=== PATIENT | male | born 1965 | race Caucasian/White ===

== ENCOUNTER 2017-01-11 07:12 | Emergency (ER) | payer OTHER ==
--- NOTE | 2017-01-11 07:25 | EDM.PDOC ---
ED HPI GENERAL MEDICAL PROBLEM - General Chief Complaint: Flank Pain Stated Complaint: FLANK PAIN Time Seen by Provider: 01/11/17 07:24 - History of Present Illness INITIAL COMMENTS - FREE TEXT/NARRATIVE: 51-year-old male presents emergency room with left-sided flank pain. This pain started early this morning 3 hours ago under his left-sided ribs he felt the pain moved down and then he had relieve pain and then the pain came back in his midabdomen. This pain reminds him of his kidney stones. Patient has had kidney stones on an on-and-off basis for the last 18-20 years. His last kidney stone was about 6 years ago. Patient denies fevers or chills no nausea or vomiting or change in bowel habits. No burning or frequency with urination. Currently patient is been treated for neck pain with gabapentin and meloxicam. The patient is appear working he does not have a local physician Treatments [employer]TER: Reports: Other Medication(s) Left Flank Pain Score (Numeric/FACES): 6 - Related Data Allergies Allergy/AdvReac Type Severity Reaction Status Date / Time No Known Allergies Allergy Verified 01/11/17 07:16 Home Meds: Home Meds Gabapentin [Neurontin] 300 mg PO DAILY 01/11/17 [History] Hydrocodone/Acetaminophen [[place] 5-325 Tablet] 1 - 2 each PO Q4H PRN #20 tablet 01/11/17 [Rx] Meloxicam 15 mg PO DAILY 01/11/17 [History] Ondansetron [Zofran ODT] 4 mg PO Q4H PRN #10 tab.dis 01/11/17 [Rx] Tamsulosin HCl [Flomax] 0.4 mg PO Q24H #7 cap.er.24h 01/11/17 [Rx] ED ROS GENERAL - Review of Systems Review Of Systems: See Below Constitutional: Reports: No Symptoms HEENT: Reports: No Symptoms Respiratory: Reports: No Symptoms Cardiovascular: Reports: No Symptoms GI/Abdominal: Reports: Abdominal Pain. Denies: Constipation, Diarrhea, Nausea, Vomiting : Reports: Flank Pain. Denies: Discharge, Dysuria, Frequency, Hematuria, Urgency ED EXAM, GENERAL - Physical Exam Exam: See Below Exam Limited By: No Limitations General Appearance: Alert, No Apparent Distress Respiratory/Chest: No Respiratory Distress, Lungs Clear, Normal Breath Sounds Cardiovascular: Regular Rate, Rhythm, No Edema, No Murmur GI/Abdominal: Normal Bowel Sounds, Soft, Other (He has some vague left-sided abdominal discomfort was not worsened with palpation no rigidity rebound or guarding) Back Exam: Normal Inspection. No: CVA Tenderness (L), CVA Tenderness (R) Extremities: Normal Inspection, No Pedal Edema Neurological: Alert, Oriented, Normal Cognition Course - Vital Signs Last Recorded V/S: Last Vital Signs Temp 35.9 C 01/11/17 07:21 Pulse 70 01/11/17 07:21 Resp 18 01/11/17 07:21 BP 156/96 H 01/11/17 07:21 Pulse Ox 98 01/11/17 07:21 - Orders/Labs/Meds Orders: Active Orders 24 hr Category Date Time Status Lactated Ringers [Ringers, Lactated] 1,000 ml Med 01/11/17 07:45 Active IV ASDIRECTED Medication Orders Lactated Ringer's (Ringers, Lactated) 1,000 mls @ 150 mls/hr IV ASDIRECTED TURNER Last Admin: 01/11/17 07:45 Dose: 150 mls/hr Labs: Laboratory Tests 01/11/17 01/11/17 01/11/17 Range/Units 07:22 07:30 07:30 WBC 8.03 (4.23-9.07) K/mm3 RBC 6.01 (4.63-6.08) M/mm3 Hgb 17.5 (13.7-17.5) gm/L Hct 50.3 (40.1-51.0) % MCV 83.7 (79.0-92.2) fl MCH 29.1 (25.7-32.2) pg MCHC 34.8 (32.2-35.5) g/dl RDW Std Deviation 40.5 (35.1-43.9) fL Plt Count 204 (163-337) K/mm3 MPV 10.2 (9.4-12.3) fl Neutrophils % (Manual) 67 H (40-60) % Band Neutrophils % 0 (0-10) % Lymphocytes % (Manual) 20 (20-40) % Atypical Lymphs % 0 % Monocytes % (Manual) 4 (2-10) % Eosinophils % (Manual) 8 H (0.8-7.0) % Basophils % (Manual) 1 (0.2-1.2) Platelet Estimate Adequate RBC Morph Comment Normal Sodium 142 (136-145) mEq/L Potassium 4.1 (3.5-5.1) mEq/L Chloride 105 (98-107) mEq/L Carbon Dioxide 29 (21-32) mEq/L Anion Gap 12.1 (5-15) BUN 19 H (7-18) mg/dL Creatinine 0.9 (0.7-1.3) mg/dL Est Cr Clr Drug Dosing 112.21 mL/min Estimated GFR (MDRD) > 60 (>60) mL/min BUN/Creatinine Ratio 21.1 H (14-18) Glucose 125 H (74-106) mg/dL Calcium 9.0 (8.5-10.1) mg/dL Total Bilirubin 0.5 (0.2-1.0) mg/dL AST 28 (15-37) U/L ALT 58 (16-63) U/L Alkaline Phosphatase 78 (46-116) U/L Total Protein 7.8 (6.4-8.2) g/dl Albumin 4.2 (3.4-5.0) g/dl Globulin 3.6 gm/dL Albumin/Globulin Ratio 1.2 (1-2) Urine Color Yellow (Yellow) Urine Appearance Clear (Clear) Urine pH 6.0 (5.0-8.0) Ur Specific [place] 1.025 (1.005-1.030) Urine Protein 2+ H (Negative) Urine Glucose (UA) Negative (Negative) Urine Ketones Negative (Negative) Urine Occult Blood 3+ H (Negative) Urine Nitrite Negative (Negative) Urine Bilirubin Negative (Negative) Urine Urobilinogen 0.2 (0.2-1.0) Ur Leukocyte Esterase Negative (Negative) Urine RBC Too numerous to cnt H (0-5) /hpf Urine WBC Not seen (0-5) /hpf Ur Epithelial Cells Not seen (0-5) /hpf Urine Bacteria Few (FEW) /hpf Urine Mucus Few (FEW) /hpf Meds: Medications Generic Name Dose Route Start Last Admin Trade Name Freq PRN Reason Stop Dose Admin Lactated Ringer's 1,000 mls @ 150 mls/hr 01/11/17 07:45 01/11/17 07:45 Ringers, Lactated IV 150 mls/hr ASDIRECTED TURNER Administration Discontinued Medications Generic Name Dose Route Start Last Admin Trade Name Freq PRN Reason Stop Dose Admin Fentanyl 50 mcg 01/11/17 07:35 01/11/17 07:43 Sublimaze IVPUSH 01/11/17 07:36 50 mcg ONETIME ONE Administration - Re-Assessments/Exams Free Text/Narrative Re-Assessment/Exam: 01/11/17 09:36 CT is consistent with a left-sided kidney stone just proximal to the UVJ patient has a 3.2 mm stone. With some mild dilation of the ureter. We are awaiting the results of the urinalysis. The patient works here he lives in [place] and he will be going home on Saturday he should follow-up in our clinic on Saturday for recheck. Patient understands this and is in agreement to it. 01/11/17 11:01 Urinalysis has some microscopic hematuria. No evidence of infection. The patient will be discharged this time. Departure - Departure Time of Disposition: 11:02 Disposition: Home, Self-Care 01 Clinical Impression: Kidney stone on left side - Discharge Information Prescriptions: Hydrocodone/Acetaminophen [[place] 5-325 Tablet] 1 - 2 each PO Q4H PRN #20 tablet PRN Reason: Abdominal Pain Ondansetron [Zofran ODT] 4 mg PO Q4H PRN #10 tab.dis PRN Reason: Nausea/Vomiting Tamsulosin HCl [Flomax] 0.4 mg PO Q24H #7 cap.er.24h Referrals: PCP,Not In Area [Primary Care Provider] - Forms: ED Department Discharge Additional Instructions: Return to the emergency room with any questions problems or worsening symptoms. Follow-up in the Hospital clinic for recheck on Saturday. [phone]. Call your physician back home and see him the end of this week for recheck as well. You have a left-sided kidney stone I anticipate this will pass. You will be started on Flomax this helps year urinary tract relax to facilitate easier passage of stones. Strain urine to try and catch the stone and discussed with your physician having this analyzed and see if they can get you on treatment to minimize your stones you have several stones within your kidneys that can pass down the road. And it would be better to minimize the formation of these. You been started on 3 new medications the first one is Flomax take one daily for a week. You been started on hydrocodone take one or 2 every 4 hours as needed for pain. Allow 12 hours after using this medication before driving or returning to work. You been started on Zofran this is for nausea it will dissolve on or under your tongue use 1 every 4-6 hours as needed. When you get home meet with your physician discuss your kidney stone and how to prevent getting more of them.. Your CAT scan showed a fatty liver. Discussed this with your physician. And have your physician review your overall health. - My Orders Last 24 Hours: My Active Orders 01/11/17 07:45 Lactated Ringers [Ringers, Lactated] 1,000 ml IV ASDIRECTED - Assessment/Plan Last 24 Hours: My Active Orders 01/11/17 07:45 Lactated Ringers [Ringers, Lactated] 1,000 ml IV ASDIRECTED
[2017-01-11] MEDS ORDERED: fentaNYL 100 MCG/2 ML SDV IVPUSH ONE (07:35)
[2017-01-11] MEDS ORDERED: Lactated Ringers 1,000 ML IV SCH (07:45)
--- NOTE | 2017-01-11 08:42 | CT ---
CT abdomen and pelvis Technique: Multiple axial sections were obtained from above the dome of the diaphragm inferiorly to the pubic symphysis. Intravenous and oral contrast was not utilized. Study has been performed as a ureteral stone protocol. Findings: Multiple nonobstructing calculi are seen within both kidneys measuring less than 5 mm. Left ureter is mildly prominent. This ureteral prominence is due to an obstructing stone within the distal left ureter measuring approximately 3.2 mm. This stone is located approximately 2.5 cm from the UVJ. No other abnormal calcifications are seen along the course of the ureters. Calcified lymph nodes are seen within the left hilum and inferior hilar region. Nothing acute is seen within the visualized lung bases. Diffuse fatty infiltration is seen within the liver. Several small calcified gallstones are seen within the gallbladder. Spleen shows a calcified granuloma. Pancreas is within normal limits. Aorta shows slight atherosclerotic calcification without aneurysm. No retroperitoneal adenopathy or mesenteric abnormalities are seen. No pelvic mass or adenopathy is seen. No findings of appendicitis are seen. No bowel dilatation is seen. Bone window settings were reviewed which shows slight degenerative change within the spine. Impression: 1. Multiple small nonobstructing calculi within both kidneys. 2. Mild left ureteral prominence caused by an obstructing 3.2 mm stone within the distal left ureter located approximately 2.5 cm from the UVJ. 3. Fatty infiltration within the liver. Several small calcified gallstones. 4. Other incidental findings as noted above. Diagnostic code #3
== END 2017-01-11 11:27 | disposition home or self-care (01) ==
LOC: JD.ED 07:12
DX: N20.2 Calculus of kidney with calculus of ureter (principal); Z79.899 Other long term (current) drug therapy
CPT/HCPCS: 36415; 74176; 80053; 81001; 85025; 96361; 96374; 99284; J3010; J7120